=== PATIENT | female | born 1990 | race Caucasian/White ===

== ENCOUNTER 2020-01-21 18:08 | Emergency (ER) | payer SELFPAY ==
[2020-01-21 18:22] VITALS: BP 157/93; PULSE 112; RESP 20; TEMP 36.6; O2SAT 97; BMI 38.4
--- NOTE | 2020-01-21 19:55 | CTR_ITS ---
PROCEDURE INFORMATION: Exam: CT Abdomen And Pelvis With Contrast Exam date and time: 01/21/2020 8:08 PM Age: 29 years old Clinical indication: Abdominal pain; Localized; Right lower quadrant (rlq); Additional info: Rlq pain TECHNIQUE: Imaging protocol: Computed tomography of the abdomen and pelvis with intravenous contrast. Radiation optimization: All CT scans at this facility use at least one of these dose optimization techniques: automated exposure control; mA and/or kV adjustment per patient size (includes targeted exams where dose is matched to clinical indication); or iterative reconstruction. Contrast material: OMNIPAQUE 300; Contrast volume: 95 ml; Contrast route: INTRAVENOUS (IV); COMPARISON: CT Abdomen/Pelvis Renal [id number] 06/18/2013 9:05 AM RADIATION DOSE METRICS: Total DLP (mGy-cm): 1690.61 FINDINGS: Liver: Normal. No mass. Gallbladder and bile ducts: Normal. No calcified stones. No ductal dilation. Pancreas: Normal. No ductal dilation. Spleen: Normal. No splenomegaly. Adrenals: Normal. No mass. Kidneys and ureters: 1 mm bilateral nonobstructing renal calculi. No hydronephrosis. Stomach and bowel: Unremarkable. No obstruction. No mucosal thickening. Appendix: The appendix is visible and is normal. Intraperitoneal space: Unremarkable. No free air. No significant fluid collection. Vasculature: Unremarkable. No abdominal aortic aneurysm. Lymph nodes: Unremarkable. No enlarged lymph nodes. Urinary bladder: Unremarkable as visualized. Reproductive: 4.9 cm cyst in the right ovary, Hounsfield units measuring 20. The uterus and left ovary unremarkable. Bones/joints: Unremarkable. No acute fracture. Soft tissues: Small fat containing umbilical hernia. CT/CT abdomen pelvis w con* [id number] IMPRESSION: 1. 4.9 cm simple appear cyst in the right ovary. These require no follow-up in asymptomatic patients. If this could refer to patient's symptoms, this can be further evaluated with ultrasound. 2. Tiny nonobstructing renal calculi. Radiation Dose CTDIVOL = (mGy): DLP = 1690.61 (mGy-cm)
--- NOTE | 2020-01-21 19:57 | W.ED.FEMALGU ---
HPI - Female Genitourinary General: Chief complaint: Urogenital-Female Stated complaint: severe pelvic pain Time Seen by Provider: 01/21/20 19:47 Source: patient Mode of arrival: ambulatory Limitations: no limitations History of Present Illness: HPI Narrative: 29-year-old female states states she has been having right lower quadrant abdominal pain over the last 2 days it is worsened. States pain is sharp in nature and rates an 8 out of 10. States that radiates down into her pelvis. She denies any vaginal discharge or bleeding. Patient denies any worsening or improving factors. She denies any vomiting or diarrhea. She has no history of abdominal surgeries in the past. Associated symptoms: Reports abdominal pain; Deny headache(s) Review of Systems Const: Denies: fever(s), chills, body aches or change in appetite Eyes: Denies: blurry vision or eye discomfort ENMT: Denies: throat pain or dental pain Card: Denies: chest pain Resp: Denies: dyspnea GI: Reports: abdominal pain : Denies: dysuria Musc: Denies: neck pain or back pain Skin/Breast: Denies: rash Neuro: Denies: headache(s) Psych: Denies: depression [place]/Lymph: Denies: easy bruising All/Imm: Denies: urticaria Physical Exam Const: COMMON NORMALS: no acute distress, patient oriented x3 and healthy appearing HENMT: COMMON NORMALS: normocephalic and atraumatic HEAD & SCALP: normocephalic and atraumatic Eye: COMMON NORMALS: Equal, round and reactive pupils present and EOMs intact bilaterally PUPIL: Yes Equal, round and reactive pupils present Neck/C-Spine: COMMON NORMALS: full ROM and supple Chest: COMMONS NORMALS: normal inspection of the chest and normal palpation of entire chest wall Resp: COMMON NORMALS: normal respiratory effort, No retractions, No use of accessory muscles and clear to auscultation bilaterally AUSCULTATION: clear to auscultation bilaterally Cardio: COMMON NORMALS: regular rate, regular rhythm and No murmurs present (Cardio) RATE: regular rate RHYTHM: regular rhythm GI: COMMON NORMALS: Normal to inspection, nondistended, normoactive bowel sounds present, Soft to palpation and no masses PALPATION: Yes Soft to palpation and Yes Tenderness to palpation present (GI) Details: RLQ Extremity: COMMON NORMALS: normal to inspection and full ROM Neuro: COMMON NORMALS: patient oriented x3, moves all extremities and no focal motor deficits Psych: COMMON NORMALS: mental status grossly normal, Normal thought process present and cooperative THOUGHT PROCESS: Normal thought process present Skin: COMMON NORMALS: no rashes or lesions noted and no wounds GENERAL SKIN EXAM: no rashes or lesions noted Course Vital Signs: Vital signs: Vital Signs Temperature 97.9 F 01/21/20 18:22 Pulse Rate 93 01/21/20 21:41 Respiratory Rate 18 01/21/20 21:41 Blood Pressure 117/81 01/21/20 21:41 Pulse Oximetry 97 01/21/20 21:41 MDM - Female MDM Narrative: Medical decision making narrative: Catie presents here with abdominal pain likely from ovarian cyst. Her pain is minimal and she has very minimal tenderness. CT showed no signs of appendicitis. Patient is stable for discharge and is to follow-up with gynecology. Patient is return if worsening. She understands and agrees to plan. Lab Data: Labs: Lab Results 01/21/20 01/21/20 01/21/20 Range/Units 20:04 20:25 20:25 WBC 14.2 H (4.0-10.0) 10^3/ uL RBC 4.45 (4.1-5.3) 10^6/u L Hgb 12.6 (11.5-15.3) g/dL Hct 38.5 (37.0-47.0) % MCV 86.5 (81-99) fL MCH 28.3 (28.0-34.0) pg MCHC 32.7 (30.0-36.0) g/dL RDW 13.8 (12.1-15.1) % Plt Count 331 (130-400) 10^3/c mm MPV 10.3 (7.4-10.4) fL Neut % (Auto) 56.6 % Lymph % (Auto) 34.1 % [place] % (Auto) 7.1 % Eos % (Auto) 1.3 % Baso % (Auto) 0.6 % Neut # (Auto) 8.02 H (1.8-7.7) 10^3/u L Lymph # (Auto) 4.8 (0.8-4.8) 10^3/u L [place] # (Auto) 1.0 H (0.2-0.9) 10^3/u L Eos # (Auto) 0.2 (0.0-0.8) 10^3/u L Baso # (Auto) 0.1 (0.0-0.1) 10^3/u L Nucleated RBC % (a uto) 0 % Nucleated RBCs # 0.0 /100WBC Sodium 134 L (136-145) mmol/L Potassium 3.9 (3.5-5.1) mmol/L Chloride 101 (98-107) mmol/L Carbon Dioxide 22 (22-29) mmol/L Anion Gap 14.9 (5-19) BUN 12 (6-20) mg/dL Creatinine 0.7 (0.5-0.9) mg/dL GFR Calculation 97.6 (90-130) mL/min Glucose 97 (65-115) mg/dL Calculated Osmolal ity 278 L (285-295) mOsm/k g Calcium 9.3 (8.5-10.5) mg/dL Total Bilirubin 0.2 (0.15-1.2) mg/dL AST 15 (0-32) U/L ALT 18 (0-33) U/L Alkaline Phosphata se 63 (35-105) IU/L Total Protein 7.2 (6.6-8.7) g/dL Albumin 3.6 (3.5-5.2) g/dL Globulin 3.6 (1.3-4.6) g/dL Lipase 43 (13-60) U/L HCG, Qual Negative (Negative) Imaging Data: CT Abd/Pel: Radiologist's impression: [address] [address] [address] Scan Report Signed Patient: Catie Andrade Unit #: [id number] : 1990 Age/Sex: 29 / F ADM Date: 01/21/20 Loc: ER Room/Bed: Attending Dr: Ordering Provider/Ordering MD: Annita Aguilar MD Date of Service: 01/21/20 Procedure(s): CT abdomen pelvis w con* [id number] Accession Number(s): [id number] Report Number: [id number] PROCEDURE INFORMATION: Exam: CT Abdomen And Pelvis With Contrast Exam date and time: 01/21/2020 8:08 PM Age: 29 years old Clinical indication: Abdominal pain; Localized; Right lower quadrant (rlq); Additional info: Rlq pain TECHNIQUE: Imaging protocol: Computed tomography of the abdomen and pelvis with intravenous contrast. Radiation optimization: All CT scans at this facility use at least one of these dose optimization techniques: automated exposure control; mA and/or kV adjustment per patient size (includes targeted exams where dose is matched to clinical indication); or iterative reconstruction. Contrast material: OMNIPAQUE 300; Contrast volume: 95 ml; Contrast route: INTRAVENOUS (IV); COMPARISON: CT Abdomen/Pelvis Renal [id number] 06/18/2013 9:05 AM RADIATION DOSE METRICS: Total DLP (mGy-cm): 1690.61 FINDINGS: Liver: Normal. No mass. Gallbladder and bile ducts: Normal. No calcified stones. No ductal dilation. Pancreas: Normal. No ductal dilation. Spleen: Normal. No splenomegaly. Adrenals: Normal. No mass. Kidneys and ureters: 1 mm bilateral nonobstructing renal calculi. No hydronephrosis. Stomach and bowel: Unremarkable. No obstruction. No mucosal thickening. Appendix: The appendix is visible and is normal. Intraperitoneal space: Unremarkable. No free air. No significant fluid collection. Vasculature: Unremarkable. No abdominal aortic aneurysm. Lymph nodes: Unremarkable. No enlarged lymph nodes. Urinary bladder: Unremarkable as visualized. Reproductive: 4.9 cm cyst in the right ovary, Hounsfield units measuring 20. The uterus and left ovary unremarkable. Bones/joints: Unremarkable. No acute fracture. Soft tissues: Small fat containing umbilical hernia. CT/CT abdomen pelvis w con* [id number] IMPRESSION: 1. 4.9 cm simple appear cyst in the right ovary. These require no follow-up in asymptomatic patients. If this could refer to patient's symptoms, this can be further evaluated with ultrasound. 2. Tiny nonobstructing renal calculi. Discharge Plan Discharge Patient Disposition: Home Clinical Impression: Ovarian cyst Qualifiers: Laterality: right Qualified Code(s): N83.201 - Unspecified ovarian cyst, right side Condition: Stable Prescriptions: [place] 5-325 mg tablet 1 tab PO Q6H PRN (Reason: pain) Qty: 14 RF: 0 ondansetron 4 mg tablet,disintegrating 4 mg PO Q6H PRN (Reason: nausea and vomiting) Qty: 14 RF: 0 Discharge Orders: Discharge Order (Routine); Ordered 01/21/20 Ordered By: Annita Aguilar Referrals: Kevin Murdock MD [Primary Care Provider] - Pedro Luis Otero MD [Physician] - 1-3 days Discharge Diet: Advance as tolerated Discharge Activity: Resume usual activity Patient Instructions: Ovarian Cyst (ED) Coding Level of Care Code ED Frame Table Operator for Chg Fwd Exam Comprehensive
[2020-01-21 20:09] LABS: HCG Qualitative Urine. Negative (Negative)
[2020-01-21] MEDS: sodium chloride 0.9% 1,000 ML 999 ML IV (20:28)
[2020-01-21 20:29] LABS: Basophils # 0.1 10^3/uL (0.0-0.1); Basophils % 0.6 %; Eosinophils # 0.2 10^3/uL (0.0-0.8); Eosinophils % 1.3 %; Hematocrit 38.5 % (37.0-47.0); Hemoglobin 12.6 g/dL (11.5-15.3); Lymphocytes # 4.8 10^3/uL (0.8-4.8); Lymphocytes % 34.1 %; Mean Corpuscular HGB Conc 32.7 g/dL (30.0-36.0); Mean Corpuscular Hemoglobin 28.3 pg (28.0-34.0); Mean Corpuscular Volume 86.5 fL (81-99); Mean Platelet Volume 10.3 fL (7.4-10.4); Monocytes % 7.1 %; Neutrophils # 8.02 10^3/uL (1.8-7.7); Neutrophils % 56.6 %; Nucleated Red Blood Cells % 0 %; Platelet Count 331 10^3/cmm (130-400); Red Blood Count 4.45 10^6/uL (4.1-5.3); Red Cell Distribution Width 13.8 % (12.1-15.1); White Blood Count 14.2 10^3/uL (4.0-10.0)
[2020-01-21 20:32] VITALS: BP 150/88; PULSE 99; RESP 18; O2SAT 95
[2020-01-21] MEDS: iohexol 300 mg/mL 100 mL Btl IV (20:49)
[2020-01-21 20:50] LABS: Alanine Aminotransferase 18 U/L (0-33); Albumin Level 3.6 g/dL (3.5-5.2); Alkaline Phosphatase 63 IU/L (35-105); Anion Gap 14.9 (5-19); Aspartate Amino Transferase 15 U/L (0-32); Blood Urea Nitrogen 12 mg/dL (6-20); Calcium 9.3 mg/dL (8.5-10.5); Carbon Dioxide 22 mmol/L (22-29); Chloride 101 mmol/L (98-107); Globulin 3.6 g/dL (1.3-4.6); Glomerular Filtration Rate 97.6 mL/min (90-130); Glucose 97 mg/dL (65-115); Lipase 43 U/L (13-60); Osmolality Calculated 278 mOsm/kg (285-295); Potassium 3.9 mmol/L (3.5-5.1); Sodium 134 mmol/L (136-145); Total Bilirubin 0.2 mg/dL (0.15-1.2); Total Protein 7.2 g/dL (6.6-8.7)
--- NOTE | 2020-01-21 21:22 | PC.NURSE ---
Patient refused Morphine and Zofran at 1999 not charting as not given at this time in case nausea and pain return.
[2020-01-21 21:41] VITALS: BP 117/81; PULSE 93; RESP 18; O2SAT 97
[2020-01-21 22:29] LABS: Add Urine Microscopic? NO
[2020-01-21 22:35] VITALS: BP 125/86; PULSE 90; RESP 18; O2SAT 96
[2020-01-21 23:11] LABS: Bilirubin Urine Neg (Negative); Blood Urine Neg (Negative); Glucose Urine UA Norm (Normal); Ketones Urine Negative (Negative); Leukocyte Esterase Urine Negative (Negative); Nitrate Urine Negative (Negative); Protein Urine Neg (Negative); Specific Gravity, Urine 1.025 (1.005-1.030); Urine Appearance Clear (CLEAR); Urine Color Yellow (Yellow); Urobilinogen Urine Norm (Negative)
--- NOTE | 2020-01-22 09:16 | DCPLANNER ---
advertising manager had message to schedule a follow up appointment for patient with [facility]. advertising manager called the [facility], spoke with Fabián, gave clinic patients information. advertising manager was told that patients information would be printed and reviewed. Clinic will call patient with appointment information.
--- NOTE | 2020-01-26 15:49 | DCPLANNER ---
Fabián from [facility] called adult protective caseworker and informed adult protective caseworker that when clinic called patient to schedule a follow up appointment, that patient is following up with her OB.
== END 2020-01-21 22:35 | disposition home or self-care (01) ==
PROVIDERS: Emergency Provider Emergency Medicine; PCP Family Medicine
DX: N83.201 Unspecified ovarian cyst, right side (principal)
CPT/HCPCS: 12345; 74177; 80053; 81003; 81025; 83690; 85025; 96360; 99283; J7030; Q9967

== ENCOUNTER 2020-08-21 15:28 | Emergency (ER) | payer OTHER, SELFPAY ==
[2020-08-21 15:29] VITALS: BP 159/109; PULSE 96; RESP 26; TEMP 36.6; O2SAT 100; BMI 36.6
--- NOTE | 2020-08-21 15:34 | CTR_ITS ---
PROCEDURE INFORMATION: Exam: CT Abdomen And Pelvis Without Contrast Exam date and time: 08/21/2020 4:00 PM Age: 29 years old Clinical indication: Abdominal pain; Other: Back and valeria flank pain TECHNIQUE: Imaging protocol: Computed tomography of the abdomen and pelvis without contrast. Radiation optimization: All CT scans at this facility use at least one of these dose optimization techniques: automated exposure control; mA and/or kV adjustment per patient size (includes targeted exams where dose is matched to clinical indication); or iterative reconstruction. COMPARISON: CT abdomen pelvis w con* [id number] 01/21/2020 8:40 PM RADIATION DOSE METRICS: Total DLP (mGy-cm): 1879 FINDINGS: Liver: Normal. No mass. Gallbladder and bile ducts: Normal. No calcified stones. No ductal dilation. Pancreas: Normal. No ductal dilation. Spleen: Normal. No splenomegaly. Adrenal glands: Normal. No mass. Kidneys and ureters: 2 mm calculus in the terminal left ureter with mild columning of the left ureter and trace hydronephrosis. 2 mm nonobstructing calculus in the right and left kidneys. Stomach and bowel: Unremarkable. No obstruction. No mucosal thickening. Appendix: The appendix is visualized and is normal. Intraperitoneal space: Unremarkable. No free air. No significant fluid collection. Vasculature: Unremarkable. No abdominal aortic aneurysm. Lymph nodes: Unremarkable. No enlarged lymph nodes. Urinary bladder: Unremarkable as visualized. Reproductive: Unremarkable as visualized. Bones/joints: Unremarkable. No acute fracture. Soft tissues: Small fat containing umbilical hernia. CT/CT kidney stone [id number] IMPRESSION: 1. 2 mm calculus in the terminal left ureter with mild left hydronephrosis. 2. Small bilateral renal calculi. Radiation Dose CTDIVOL = (mGy): DLP = 1879 (mGy-cm)
--- NOTE | 2020-08-21 15:35 | ED_ITS ---
HPI - Back Pain/Injury General: Chief Complaint: Back Pain/Injury Stated Complaint: Poss kidney stone/back pain Time Seen by Provider: 08/21/20 15:29 History of Present Illness: HPI Narrative: This patient is a 29-year-old female presents to the emergency department with left flank pain. Patient states she does have a history of kidney stones. Patient also has a history of anxiety panic disorder. Patient appears to be having anxiety and panic attack with hyperventilation. We will do medical evaluation treat as needed. MD elicited complaint: back pain Pain scale (0-10): 10 Quality: sharp Radiation: abdomen and groin Relieving factors: none Associated symptoms: Reports abdominal pain; Deny chills, dysuria, fatigue, fever(s), nausea, urinary urgency or vomiting Review of Systems General: Reports: 10 or more systems reviewed and unremarkable except in HPI and below Const: Denies: fever(s), chills, body aches or fatigue Eyes: Denies: change in vision or blurry vision ENMT: Denies: throat pain, hoarseness or mouth pain Card: Denies: chest pain, palpitations, irregular heart rhythm, edema, swelling of feet/ankles or lightheadedness Resp: Denies: dyspnea, productive cough, non-productive cough, wheezing or pain on inspiration GI: Reports: abdominal pain; Denies: nausea or vomiting : Reports: flank pain; Denies: difficulty voiding, dysuria, urinary frequency, urinary urgency or urinary hesitancy Musc: Denies: neck pain, back pain, extremity pain, extremity swelling, joint pain, joint swelling, joint redness, joint warmth or limited range of motion Skin/Breast: Denies: rash, pruritus, erythema or skin tenderness Neuro: Denies: headache(s), numbness in extremities or weakness in extremities Psych: Denies: anxiety or depression [facility] Female Reproductive History: Date of last menstrual period: 08/19/20 Physical Exam Const: COMMON NORMALS: no acute distress, average body habitus, patient oriented x3, no limitations, healthy appearing, alert and well nourished HENMT: COMMON NORMALS: normocephalic, atraumatic, external ears normal, EAC's normal, TM's normal bilaterally, Normal external nose present and Normal nasal mucous membranes and turbinates present HEAD & SCALP: normocephalic and atraumatic NOSE: Normal external nose present and Normal nasal mucous membranes and turbinates present EXTERNAL EAR: Yes external ears normal EXTERNAL AUDITORY CANAL: EAC's normal TYMPANIC MEMBRANE: TM's normal bilaterally Neck/C-Spine: COMMON NORMALS: full ROM, no lymphadenopathy, supple, no meningeal signs, no JVD, Thyroid normal and No carotid bruits THYROID: Thyroid normal Chest: COMMONS NORMALS: normal inspection of the chest, normal palpation of entire chest wall, normal inspection of the breasts and normal palpation of the breasts Breast/axilla inspection: Yes normal inspection of the breasts BREAST/AXILLA PALPATION: Yes normal palpation of the breasts Resp: COMMON NORMALS: normal respiratory effort, No retractions, No use of accessory muscles, clear to auscultation bilaterally and percussion normal AUSCULTATION: clear to auscultation bilaterally PERCUSSION: percussion normal Cardio: COMMON NORMALS: no JVD, regular rate, regular rhythm, S1 normal heart sound present, S2 normal heart sound present, No gallops present (Cardio), No clicks present (Cardio), No murmurs present (Cardio), No rub (Cardio) and Peripheral pulses 2+ throughout RATE: regular rate RHYTHM: regular rhythm HEART SOUNDS: S1 normal heart sound present and S2 normal heart sound present PERIPHERAL PULSES: Peripheral pulses 2+ throughout GI: COMMON NORMALS: Normal to inspection, nondistended, normoactive bowel sounds present, Soft to palpation, non-tender, No hepatosplenomegaly present, no masses and no bruits PALPATION: Yes Soft to palpation and Yes No hepatosplenomegaly present : COMMON NORMALS: Yes normal external appearance, Yes normal appearance of the vagina, Yes normal appearance of the cervix, Yes normal bimanual exam, Yes No adnexal tenderness and Yes no masses BLADDER/KIDNEY EXAM: Yes CVA tenderness on the left BIMANUAL EXAM - VAGINA & UTERUS: Yes normal bimanual exam Back/Pelvis: COMMON NORMALS: thoracic and lumbar spine normal to inspection, no thoracic nor lumbar tenderness, thoraco-lumbar ROM normal and straight leg raise negative bilaterally GENERAL BACK: Yes CVA tenderness Extremity: COMMON NORMALS: normal to inspection, full ROM, capillary refill normal, no joint enlargement, no clubbing, cyanosis or edema, no calf tenderness and no pedal edema Neuro: COMMON NORMALS: patient oriented x3 SENSORIUM/ORIENTATION: Yes alert MENINGEAL SIGNS: Yes no meningeal signs Course Vital Signs: Vital signs: Vital Signs Temperature 97.9 F 08/21/20 15:29 Pulse Rate 94 08/21/20 16:33 Respiratory Rate 18 08/21/20 16:33 Blood Pressure 121/76 08/21/20 16:33 Pulse Oximetry 100 08/21/20 16:33 MDM - Back Pain/Injury MDM Narrative: Medical decision making narrative: This patient presents to the emergency department complaint of left leg pain and anxiety attack. Patient does have a 2 mm calculus present on CT scan. Patient be placed on Flomax and diclofenac discharged home. Medical Records: Attestation: I reviewed the patient's medical records. Lab Data: Attestation: I reviewed the patient's lab results. Labs: Lab Results 08/21/20 08/21/20 08/21/20 Range/Units 15:38 15:38 15:45 WBC 13.4 H (4.0-10.0) 10^3/ uL RBC 4.43 (4.1-5.3) 10^6/u L Hgb 13.2 (11.5-15.3) g/dL Hct 38.5 (37.0-47.0) % MCV 86.9 (81-99) fL MCH 29.8 (28.0-34.0) pg MCHC 34.3 (30.0-36.0) g/dL RDW 13.7 (12.1-15.1) % Plt Count 358 (130-400) 10^3/c mm MPV 10.5 H (7.4-10.4) fL Neut % (Auto) 50.7 % Lymph % (Auto) 40.1 % [place] % (Auto) 7.2 % Eos % (Auto) 1.0 % Baso % (Auto) 0.7 % Neut # (Auto) 6.79 (1.8-7.7) 10^3/u L Lymph # (Auto) 5.4 H (0.8-4.8) 10^3/u L [place] # (Auto) 1.0 H (0.2-0.9) 10^3/u L Eos # (Auto) 0.1 (0.0-0.8) 10^3/u L Baso # (Auto) 0.1 (0.0-0.1) 10^3/u L Nucleated RBC % (a uto) 0 % Nucleated RBCs # 0.0 /100WBC Specimen Type Arterial Sample Site Radial, left ABG pH 7.45 (7.35-7.45) ABG pCO2 31.2 L (35-45) mmHg ABG pO2 56.5 L (80.0-100.0) mmH g ABG HCO3 21.5 L (22-26) mmol/L ABG O2 Saturation 90.8 ABG Base Excess -1.7 (-2.0-2.0) mmol/ L Dung Test Pos A-a O2 Gradient 7.2 (5-10) mmHg Hematocrit 38.8 (37-47) % Hgb O2 Saturation 89.2 L (95-100) % Carboxyhemoglobin 0.8 (0.4-20.1) %THgb Methemoglobin 0.9 (0.4-1.5) % Total Hemoglobin 12.7 (12-16) g/dL Ionized Calcium 1.2 (1.1-1.4) mmol/L O2 Delivery Device Room air FiO2 21.0 % Early Childhood Aide Classroom ID Cak Sodium 138 141.0 (136-145) mmol/L Potassium 4.2 3.3 L (3.5-5.1) mmol/L Chloride 102 (98-107) mmol/L Carbon Dioxide 17 L (22-29) mmol/L Anion Gap 23.2 H (5-19) BUN 7 (6-20) mg/dL Creatinine 0.7 (0.5-0.9) mg/dL GFR Calculation 97.6 (90-130) mL/min Glucose 126 H 139.0 H (65-115) mg/dL Calculated Osmolal ity 286 (285-295) mOsm/k g Calcium 9.3 (8.5-10.5) mg/dL Total Bilirubin 0.4 (0.15-1.2) mg/dL AST 22 (0-32) U/L ALT 26 (0-33) U/L Alkaline Phosphata se 62 (35-105) IU/L Total Protein 7.2 (6.6-8.7) g/dL Albumin 4.5 (3.5-5.2) g/dL Globulin 2.7 (1.3-4.6) g/dL Lipase 28 (13-60) U/L HCG, Qual (Negative) Urine Color (Yellow) Urine Appearance (CLEAR) Urine pH (5-7) Ur Specific Gravit y (1.005-1.030) Urine Protein (Negative) Urine Glucose (UA) (Normal) Urine Ketones (Negative) Urine Blood (Negative) Urine Nitrate (Negative) Urine Bilirubin (Negative) Urine Urobilinogen (Negative) mg/dL Ur Leukocyte Ana Laura ase (Negative) Urine RBC (0-2) /hpf Urine WBC (0-5) /hpf Ur Squamous Epith Cells (0-5) /hpf Amorphous Sediment Urine Bacteria (NONE) /hpf Urine Mucus /hpf 08/21/20 08/21/20 Range/Units 16:08 16:08 WBC (4.0-10.0) 10^3/ uL RBC (4.1-5.3) 10^6/u L Hgb (11.5-15.3) g/dL Hct (37.0-47.0) % MCV (81-99) fL MCH (28.0-34.0) pg MCHC (30.0-36.0) g/dL RDW (12.1-15.1) % Plt Count (130-400) 10^3/c mm MPV (7.4-10.4) fL Neut % (Auto) % Lymph % (Auto) % [place] % (Auto) % Eos % (Auto) % Baso % (Auto) % Neut # (Auto) (1.8-7.7) 10^3/u L Lymph # (Auto) (0.8-4.8) 10^3/u L [place] # (Auto) (0.2-0.9) 10^3/u L Eos # (Auto) (0.0-0.8) 10^3/u L Baso # (Auto) (0.0-0.1) 10^3/u L Nucleated RBC % (a uto) % Nucleated RBCs # /100WBC Specimen Type Sample Site ABG pH (7.35-7.45) ABG pCO2 (35-45) mmHg ABG pO2 (80.0-100.0) mmH g ABG HCO3 (22-26) mmol/L ABG O2 Saturation ABG Base Excess (-2.0-2.0) mmol/ L Dung Test A-a O2 Gradient (5-10) mmHg Hematocrit (37-47) % Hgb O2 Saturation (95-100) % Carboxyhemoglobin (0.4-20.1) %THgb Methemoglobin (0.4-1.5) % Total Hemoglobin (12-16) g/dL Ionized Calcium (1.1-1.4) mmol/L O2 Delivery Device FiO2 % Early Childhood Aide Classroom ID Sodium (136-145) mmol/L Potassium (3.5-5.1) mmol/L Chloride (98-107) mmol/L Carbon Dioxide (22-29) mmol/L Anion Gap (5-19) BUN (6-20) mg/dL Creatinine (0.5-0.9) mg/dL GFR Calculation (90-130) mL/min Glucose (65-115) mg/dL Calculated Osmolal ity (285-295) mOsm/k g Calcium (8.5-10.5) mg/dL Total Bilirubin (0.15-1.2) mg/dL AST (0-32) U/L ALT (0-33) U/L Alkaline Phosphata se (35-105) IU/L Total Protein (6.6-8.7) g/dL Albumin (3.5-5.2) g/dL Globulin (1.3-4.6) g/dL Lipase (13-60) U/L HCG, Qual Negative (Negative) Urine Color Yellow (Yellow) Urine Appearance Cloudy (CLEAR) Urine pH 5 (5-7) Ur Specific Gravit y 1.025 (1.005-1.030) Urine Protein 2+ H (Negative) Urine Glucose (UA) Norm (Normal) Urine Ketones 2+ H (Negative) Urine Blood 3+ H (Negative) Urine Nitrate Negative (Negative) Urine Bilirubin 1+ H (Negative) Urine Urobilinogen 1 H (Negative) mg/dL Ur Leukocyte Ana Laura ase Trace H (Negative) Urine RBC Too numerous to c nt H (0-2) /hpf Urine WBC 0-4 H (0-5) /hpf Ur Squamous Epith Cells Rare (0-5) /hpf Amorphous Sediment Not Reportable Urine Bacteria 2+ H (NONE) /hpf Urine Mucus 2+ /hpf Imaging Data^: CT Abd/Pel: Attestation: I personally reviewed and interpreted this imaging study as follows: My impression: IMPRESSION: 1. 2 mm calculus in the terminal left ureter with mild left hydronephrosis. 2. Small bilateral renal calculi. Discharge Plan Discharge Patient Disposition: Home Clinical Impression: Renal colic, Kidney stone, Anxiety attack Condition: Stable Prescriptions: New Flomax 0.4 mg capsule 0.4 mg PO DAILY Qty: 20 RF: 0 diclofenac sodium 75 mg tablet,delayed release (DR/EC) 75 mg PO BID PRN (Reason: pain) Qty: 20 RF: 0 Discharge Orders: Discharge ED (Routine); Ordered 08/21/20 Ordered By: Pedro Luis Yañez Referrals: Kevin Murdock MD [Primary Care Provider] - Discharge Diet: Advance as tolerated Discharge Activity: Increase activity as tolerated Patient Instructions: Abdominal Pain (ED), Opioid Safety Activity Restrictions/Additional Instructions: Encourage p.o. fluids take medications as prescribed encourage relaxation exercises follow-up with PCP in 2 to 3 days Coding Level of Care Code ED E Commerce Specialist for Chg Fwd Exam Comprehensive
[2020-08-21] MEDS: ondansetron 2 mg/ML SDV 2 mL 4 MG IVP (15:45)
[2020-08-21] MEDS: ketorolac 30 mg/mL INJ 15 MG IVP (15:45)
[2020-08-21] MEDS: sodium chloride 0.9% 1,000 ML 999 ML IV (15:49)
[2020-08-21 15:52] LABS: Basophils # 0.1 10^3/uL (0.0-0.1); Basophils % 0.7 %; Eosinophils # 0.1 10^3/uL (0.0-0.8); Hematocrit 38.5 % (37.0-47.0); Hemoglobin 13.2 g/dL (11.5-15.3); Lymphocytes # 5.4 10^3/uL (0.8-4.8); Lymphocytes % 40.1 %; Mean Corpuscular HGB Conc 34.3 g/dL (30.0-36.0); Mean Corpuscular Hemoglobin 29.8 pg (28.0-34.0); Mean Corpuscular Volume 86.9 fL (81-99); Mean Platelet Volume 10.5 fL (7.4-10.4); Monocytes % 7.2 %; Neutrophils # 6.79 10^3/uL (1.8-7.7); Neutrophils % 50.7 %; Nucleated Red Blood Cells % 0 %; Platelet Count 358 10^3/cmm (130-400); Red Blood Count 4.43 10^6/uL (4.1-5.3); Red Cell Distribution Width 13.7 % (12.1-15.1); White Blood Count 13.4 10^3/uL (4.0-10.0)
[2020-08-21 15:56] LABS: ABG PCO2 31.2 mmHg (35-45); ABG PH Result 7.45 (7.35-7.45); Alveolar-Arterial Oxygen Gradi 7.2 mmHg (5-10); Arterial Blood Gas Hematocrit 38.8 % (37-47); Base Excess ABG -1.7 mmol/L (-2.0-2.0); Blood Gas Allen Test Pos; Blood Gas Operator Identificat CAK; Blood Gas Sample Site Radial, left; Blood Gas Sample Type Arterial; Carboxyhemoglobin 0.8 %THgb (0.4-20.1); HCO3 ABG 21.5 mmol/L (22-26); HGB O2 Sat 89.2 % (95-100); Ionized Calcium Level - ABG 1.2 mmol/L (1.1-1.4); Methemoglobin 0.9 % (0.4-1.5); Oxygen Device ROOM AIR; Oxygen Saturation ABG 90.8; PO2 ABG 56.5 mmHg (80.0-100.0); Potassium Level - ABG 3.3 mmol/L (3.5-5.0); Total Hemoglobin 12.7 g/dL (12-16)
[2020-08-21 16:16] LABS: Alanine Aminotransferase 26 U/L (0-33); Albumin Level 4.5 g/dL (3.5-5.2); Alkaline Phosphatase 62 IU/L (35-105); Aspartate Amino Transferase 22 U/L (0-32); Blood Urea Nitrogen 7 mg/dL (6-20); Calcium 9.3 mg/dL (8.5-10.5); Carbon Dioxide 17 mmol/L (22-29); Chloride 102 mmol/L (98-107); Globulin 2.7 g/dL (1.3-4.6); Glomerular Filtration Rate 97.6 mL/min (90-130); Glucose 126 mg/dL (65-115); Lipase 28 U/L (13-60); Osmolality Calculated 286 mOsm/kg (285-295); Sodium 138 mmol/L (136-145); Total Bilirubin 0.4 mg/dL (0.15-1.2); Total Protein 7.2 g/dL (6.6-8.7)
[2020-08-21 16:17] LABS: Slide Review Slide Review Perform
[2020-08-21 16:18] LABS: Anion Gap 23.2 (5-19); Potassium 4.2 mmol/L (3.5-5.1)
[2020-08-21 16:25] LABS: HCG Qualitative Urine. Negative (Negative)
[2020-08-21 16:33] VITALS: BP 121/76; PULSE 94; RESP 18; O2SAT 100
[2020-08-21 16:33] LABS: Bilirubin Urine 1+ (Negative); Blood Urine 3+ (Negative); Glucose Urine UA Norm (Normal); Ketones Urine 2+ (Negative); Nitrate Urine Negative (Negative); Protein Urine 2+ (Negative); Specific Gravity, Urine 1.025 (1.005-1.030); Urine Appearance Cloudy (CLEAR); Urine Color Yellow (Yellow); pH Urine 5 (5-7)
[2020-08-21 16:34] LABS: Add Urine Microscopic? YES; Leukocyte Esterase Urine Trace (Negative); Urobilinogen Urine 1 mg/dL (Negative)
[2020-08-21 16:35] LABS: RBC Urine TOO NUMEROUS TO CNT /hpf (0-2)
[2020-08-21 16:36] LABS: Bacteria Urine 2+ /hpf; Mucus Urine 2+ /hpf; Squamous Epithelial Cell Urine RARE /hpf (0-5); WBC Urine 0-4 /hpf (0-5)
[2020-08-21 16:37] LABS: Add Urine Culture? Yes
[2020-08-21 17:33] VITALS: BP 129/81; PULSE 85; RESP 18; O2SAT 100
== END 2020-08-21 17:57 | disposition home or self-care (01) ==
PROVIDERS: Emergency Provider Emergency Medicine; PCP Family Medicine
DX: N20.0 Calculus of kidney (principal); F41.9 Anxiety disorder, unspecified
CPT/HCPCS: 36600; 74176; 80051; 80053; 81001; 81025; 82330; 82805; 83690; 85025; 87086; 96361; 96374; 96375; 99283; J1885; J2405; J7030

== ENCOUNTER 2022-10-09 03:09 | Emergency (ER) | payer OTHER, SELFPAY ==
[2022-10-09 03:19] VITALS: BMI 36.6
[2022-10-09 03:22] VITALS: BP 123/84; PULSE 108; RESP 16; TEMP 36.9; O2SAT 98
--- NOTE | 2022-10-09 04:15 | CTR_ITS ---
PROCEDURE INFORMATION: Exam: CT Head Without Contrast Exam date and time: 10/09/2022 4:21 AM Age: 32 years old Clinical indication: Pain; Headache; Patient HX: GREWAL with dizziness and nausea. ; Additional info: Headache, confusion TECHNIQUE: Imaging protocol: Computed tomography of the head without contrast. Radiation optimization: All CT scans at this facility use at least one of these dose optimization techniques: automated exposure control; mA and/or kV adjustment per patient size (includes targeted exams where dose is matched to clinical indication); or iterative reconstruction. REPORTING DATA: Count of CT and Cardiac NM exams in prior 12 months: This patient has received 0 known CTs and 0 known cardiac nuclear medicine studies in the 12 months prior to the current study. COMPARISON: No relevant prior studies available. RADIATION DOSE METRICS: Total DLP (mGy-cm): 1010.88 FINDINGS: Brain: No focal hemorrhage or midline shift is identified. Cerebral ventricles: No ventriculomegaly or evidence of acute hydrocephalus. Paranasal sinuses: The partially assessed sinuses are grossly clear. Mastoid air cells: Visualized mastoid air cells are well aerated. Bones/joints: No displaced skull fracture is noted. Soft tissues: Unremarkable. CT/CT head wo con* [id number] IMPRESSION: No acute intracranial abnormality.
[2022-10-09 04:20] LABS: Basophils # 0.1 10^3/uL (0.0-0.1); Basophils % 0.9 %; Eosinophils % 0.3 %; Hematocrit 40.4 % (37.0-47.0); Hemoglobin 13.7 g/dL (11.5-15.3); Lymphocytes # 2.7 10^3/uL (0.8-4.8); Lymphocytes % 25.1 %; Mean Corpuscular HGB Conc 33.9 g/dL (30.0-36.0); Mean Corpuscular Hemoglobin 28.6 pg (28.0-34.0); Mean Corpuscular Volume 84.3 fl (81-99); Mean Platelet Volume 10.1 fL (7.4-10.4); Monocytes % 8.9 %; Neutrophils # 6.98 10^3/uL (1.8-7.7); Neutrophils % 64.5 %; Nucleated Red Blood Cells % 0 %; Platelet Count 272 10^3/cmm (130-400); Red Blood Count 4.79 10^6/uL (4.1-5.3); Red Cell Distribution Width 13.4 % (12.1-15.1); White Blood Count 10.8 10^3/uL (4.0-10.0)
[2022-10-09 04:35] LABS: HCG, Serum Qual Negative (Negative)
[2022-10-09 04:39] LABS: Albumin Level 3.8 g/dL (3.5-5.2); Alkaline Phosphatase 69 U/L (35-105); Chloride 100 mmol/L (98-107); Potassium 4.3 mmol/L (3.5-5.1)
--- NOTE | 2022-10-09 04:40 | XRR_ITS ---
PROCEDURE INFORMATION: Exam: XR Chest Exam date and time: 10/09/2022 4:43 AM Age: 32 years old Clinical indication: Cough; Additional info: Cough, vomiting TECHNIQUE: Imaging protocol: Radiologic exam of the chest. Views: 1 view. COMPARISON: CT kidney stone [id number] 08/21/2020 4:59 PM FINDINGS: Lungs: Unremarkable. No consolidation. Pleural spaces: Unremarkable. No pleural effusion. No pneumothorax. Heart/Mediastinum: Unremarkable. No cardiomegaly. Bones/joints: Unremarkable. XR/XR chest 1V portable [id number] IMPRESSION: No acute findings.
[2022-10-09] MEDS: sodium chloride 0.9% 1,000 ML 999 ML IV ×2 (04:59→06:05)
[2022-10-09] MEDS: ondansetron 2 mg/ML SDV 2 mL 4 MG IVP (05:02)
[2022-10-09] MEDS: morphine 4 mg/mL SDV 1 mL IVP (05:04)
[2022-10-09 05:09] LABS: Aspartate Amino Transferase 28 U/L (0-32); Blood Urea Nitrogen 6 mg/dL (6-20); Carbon Dioxide 20 mmol/L (22-29); Globulin 3.8 g/dL (1.3-4.6); Glomerular Filtration Rate 82.1 mL/min (90-130); Glucose 150 mg/dL (65-115); Total Bilirubin 0.3 mg/dL (0.15-1.2); Total Protein 7.6 g/dL (6.6-8.7)
[2022-10-09 05:13] LABS: Alanine Aminotransferase 38 U/L (0-33); Anion Gap 17.3 (5-19); Osmolality Calculated 276 mOsm/kg (285-295); Sodium 133 mmol/L (136-145)
[2022-10-09] MEDS: ketorolac 30 mg/mL INJ 15 MG IVP ×2 (05:17→07:47)
[2022-10-09 05:19] VITALS: BP 142/80; PULSE 107; RESP 24; O2SAT 98
[2022-10-09 05:21] LABS: Creatine Phosphokinase 85 U/L (26-192)
[2022-10-09 05:50] LABS: D Dimer 1.67 ug/mIFEU (0-0.59)
--- NOTE | 2022-10-09 06:27 | CTR_ITS ---
PROCEDURE INFORMATION: Exam: CTA Chest With Contrast Exam date and time: 10/09/2022 6:44 AM Age: 32 years old Clinical indication: Abnormal findings; Abnormal diagnostic tests; Elevated d-dimer; Cough and shortness of breath; Patient HX: Cough with SOB and tachycardia. D dimer of 1.67. ; Additional info: SOB, tachycardia, high d dimer TECHNIQUE: Imaging protocol: Computed tomographic angiography of the chest with contrast. Exam focused on the arteries. 3D rendering (Not supervised by radiologist): MIP and/or 3D reconstructed images were created by the technologist. Radiation optimization: All CT scans at this facility use at least one of these dose optimization techniques: automated exposure control; mA and/or kV adjustment per patient size (includes targeted exams where dose is matched to clinical indication); or iterative reconstruction. Contrast material: OMNI 350; Contrast volume: 74 ml; Contrast route: INTRAVENOUS (IV); REPORTING DATA: Count of CT and Cardiac NM exams in prior 12 months: This patient has received 0 known CTs and 0 known cardiac nuclear medicine studies in the 12 months prior to the current study. COMPARISON: CR (CHEST, ) 10/09/2022 4:43 AM RADIATION DOSE METRICS: Total DLP (mGy-cm): 492.58 FINDINGS: Pulmonary arteries: The pulmonary arteries are adequately opacified for evaluation to the subsegmental level. There is no filling defect to suggest embolism. Aorta: The aorta is unremarkable. There is no aneurysm. Lungs: There is consolidation of the posterior and lateral basal segments and partial consolidation of the superior segment of the right lower lobe. The left lung is clear. Pleural spaces: There is no pleural effusion or pneumothorax. Heart: Heart size is normal. There is no pericardial effusion. Lymph nodes: There are mildly asymmetrically enlarged right hilar lymph nodes which are likely reactive. Intraperitoneal space: Visible structures in the upper abdomen are unremarkable. Bones/joints: Bones are unremarkable. Soft tissues: The extrathoracic soft tissues are unremarkable. CT/CT angio chest PE protcl [id number] IMPRESSION: 1. No pulmonary embolism. 2. Segmental consolidation in the right lower lobe consistent with infection or aspiration.
--- NOTE | 2022-10-09 06:27 | CTR_ITS ---
PROCEDURE INFORMATION: Exam: CTA Head With Contrast, Arteriography Exam date and time: 10/09/2022 6:36 AM Age: 32 years old Clinical indication: Pain; Dizziness and giddiness; Headache; Patient HX: Persistent GREWAL with dizziness and nausea without relief; Additional info: Headache, dizziness, ? vertebral artery dissection TECHNIQUE: Imaging protocol: Computed tomographic angiography of the head with contrast. Exam focused on the arteries. 3D rendering (Not supervised by radiologist): MIP and/or 3D reconstructed images were created by the technologist. Radiation optimization: All CT scans at this facility use at least one of these dose optimization techniques: automated exposure control; mA and/or kV adjustment per patient size (includes targeted exams where dose is matched to clinical indication); or iterative reconstruction. Contrast material: OMNI 350; Contrast volume: 100 ml; Contrast route: INTRAVENOUS (IV); REPORTING DATA: Count of CT and Cardiac NM exams in prior 12 months: This patient has received 0 known CTs and 0 known cardiac nuclear medicine studies in the 12 months prior to the current study. COMPARISON: CT head wo con* [id number] 10/09/2022 4:21 AM RADIATION DOSE METRICS: Total DLP (mGy-cm): 574.3 FINDINGS: ANTERIOR CIRCULATION: Right internal carotid artery: Intracranial segment is patent with no significant stenosis. No aneurysm. Right middle cerebral artery: No occlusion or significant stenosis. No aneurysm. Right anterior cerebral artery: No occlusion or significant stenosis. No aneurysm. Left internal carotid artery: Intracranial segment is patent with no significant stenosis. No aneurysm. Left middle cerebral artery: No occlusion or significant stenosis. No aneurysm. Left anterior cerebral artery: No occlusion or significant stenosis. No aneurysm. POSTERIOR CIRCULATION: Right vertebral artery: No occlusion or significant stenosis. No aneurysm. Left vertebral artery: No occlusion or significant stenosis. No aneurysm. Basilar artery: No occlusion or significant stenosis. No aneurysm. Right posterior cerebral artery: No occlusion or significant stenosis. No aneurysm. Left posterior cerebral artery: No occlusion or significant stenosis. No aneurysm. Brain: No definite mass, mass effect, or midline shift. Cerebral ventricles: No ventriculomegaly. Bones/joints: Unremarkable. No acute fracture. Soft tissues: Unremarkable. PROCEDURE INFORMATION: Exam: CTA Neck With Contrast Exam date and time: 10/09/2022 6:36 AM Age: 32 years old Clinical indication: Pain; Dizziness and giddiness; Headache; Patient HX: Persistent GREWAL with dizziness and nausea without relief; Additional info: Headache, dizziness, ? vertebral artery dissection TECHNIQUE: Imaging protocol: Computed tomographic angiography of the neck with contrast. 3D rendering (Not supervised by radiologist): MIP and/or 3D reconstructed images were created by the technologist. Radiation optimization: All CT scans at this facility use at least one of these dose optimization techniques: automated exposure control; mA and/or kV adjustment per patient size (includes targeted exams where dose is matched to clinical indication); or iterative reconstruction. Contrast material: OMNI 350; Contrast volume: 100 ml; Contrast route: INTRAVENOUS (IV); REPORTING DATA: Count of CT and Cardiac NM exams in prior 12 months: This patient has received 0 known CTs and 0 known cardiac nuclear medicine studies in the 12 months prior to the current study. COMPARISON: CT head wo con* [id number] 10/09/2022 4:21 AM RADIATION DOSE METRICS: Total DLP (mGy-cm): 574.3 FINDINGS: Right common carotid artery: No stenosis. No dissection or occlusion. Right internal carotid artery: No stenosis of the extracranial segment. No dissection or occlusion. Right external carotid artery: No occlusion or stenosis of the origin. Left common carotid artery: No stenosis. No dissection or occlusion. Left internal carotid artery: No stenosis of the extracranial segment. No dissection or occlusion. Left external carotid artery: No occlusion or stenosis of the origin. Right vertebral artery: No stenosis. No dissection or occlusion. Left vertebral artery: No stenosis. No dissection or occlusion. Soft tissues: Normal. No significant soft tissue swelling. Bones/joints: No acute fracture. CT/CT angio headneck* [id number] IMPRESSION: No large vessel stenosis or occlusion. IMPRESSION: No stenosis or occlusion. REFERENCES: NASCET CRITERIA. The degree of stenosis in the cervical segment of the internal carotid artery is based on NASCET criteria. Normal is no stenosis. Mild is less than 50% stenosis. Moderate is 50-69% stenosis. Severe is 70% to 99% stenosis. Total occlusion is no detectable patent lumen.
[2022-10-09] MEDS: iohexol 350 mg/mL 500 mL Btl (per mL) IV ×2 (06:47→06:53)
[2022-10-09 07:00] VITALS: BP 116/65; PULSE 88; RESP 18; O2SAT 94
--- NOTE | 2022-10-09 07:01 | ED_ITS ---
HPI - Headache General: Chief Complaint: Headache Stated Complaint: Headache Time Seen by Provider: 10/09/22 04:27 Source: patient and family History of Present Illness: 32-year-old female presenting with multiple complaints. She notes that she was outside [place] a water park a week ago for 2 days straight. She felt tired and dehydrated following this. She began to get a headache at some point. The headache has worsened. She is dizzy. She has paresthesia to her left upper extremity. She feels short of breath. She has been coughing some. No overt chest pain. No other neurologic symptoms. MD elicited complaint: headache Onset (ago): day(s) Onset description: gradually Location: left, frontal, temporal and occipital Quality & Timing: throbbing, pulsatile and progressively worsening Associated symptoms: Reports confusion (Intermittent), nausea, neck stiffness, paresthesias, photophobia and vomiting; Deny chest pain, eye pain, eye redness, fever(s) or short of breath Review of Systems Const: Denies: fever(s) Eyes: Reports: change in vision ENMT: Reports: throat pain, odynophagia and dry mouth Card: Denies: chest pain Resp: Reports: dyspnea and non-productive cough GI: Reports: nausea and vomiting; Denies: abdominal pain Neuro: Reports: headache(s), numbness in extremities, dizziness and confusion (Intermittent) [facility] ED PFSH: Social History (Updated 12/20/20 @ 08:39 by Sun Coon LPN) Smoking and tobacco status: never smoked Second hand smoke exposure: Yes Physical Exam Const: COMMON NORMALS: patient oriented x3 and alert GENERAL APPEARANCE: cooperative, anxious and ill appearing (Mildly); not frail appearing NUTRITIONAL APPEARANCE: overweight ORIENTATION/CONSCIOUSNESS: Yes oriented to person, Yes oriented to place and Yes oriented to time HENMT: COMMON NORMALS: normocephalic, atraumatic and Normal external nose present HEAD & SCALP: normocephalic and atraumatic FACE & SINUS: normal facial exam and face symmetric NOSE: Normal external nose present Eye: COMMON NORMALS: Equal, round and reactive pupils present and EOMs intact bilaterally PUPIL: Yes Equal, round and reactive pupils present DIRECT OPHTHALMOSCOPY: Yes photophobia Neck/C-Spine: GENERAL: Yes trachea midline Chest: CHEST: Yes Symmetrical chest wall rise Resp: COMMON NORMALS: No retractions, No use of accessory muscles and clear to auscultation bilaterally EFFORT & INSPECTION: Yes tachypneic AUSCULTATION: clear to auscultation bilaterally Cardio: COMMON NORMALS: regular rhythm RATE: tachycardic RHYTHM: regular rhythm GI: COMMON NORMALS: Normal to inspection, nondistended, normoactive bowel sounds present Extremity: COMMON NORMALS: no pedal edema Neuro: CORRINE COMA SCALE: document GCS findings [place] coma scale eye o pening: Spontaneous [place] coma scale verbal response: Orientated Corrine coma scale motor response: Obey commands Corrine coma scale total score: 15 COMMON NORMALS: patient oriented x3 SENSORIUM/ORIENTATION: Yes alert, Yes oriented to person, Yes oriented to place and Yes oriented to time CRANIAL NERVES: Yes CN normal except as noted SPEECH: no expressive aphasia and no receptive aphasia SENSORY EXAM: Yes extremities (intact grossly, although subjective decreased to the left upper extremity) MOTOR EXAM: Pronator motor function present (Left upper extremity) Psych: COMMON NORMALS: speech normal SPEECH: Yes normal speech Skin: COMMON NORMALS: no rashes or lesions noted GENERAL SKIN EXAM: no rashes or lesions noted Course Vital Signs: Vital signs: Vital Signs Temperature 98.5 F 10/09/22 03:22 Pulse Rate 88 10/09/22 07:00 Respiratory Rate 18 10/09/22 07:00 Blood Pressure 116/65 10/09/22 07:00 Pulse Oximetry 94 10/09/22 07:00 Oxygen Delivery Me thod Room Air 10/09/22 05:19 MDM - Headache Medical Decision Making This patient is tachycardic. She is tachypneic. Her saturations are normal. White blood cell count is 11. Bicarbonate level is 20. Chest x-ray is nonacute. Head CT was nonacute. CK level is normal. She is not . Her D-dimer however is 1.67. Given her neurologic symptoms of dizziness, headache, CTA of the head and neck was ordered as vertebral artery dissection is on the differential. CTA of the chest was also ordered. Results are pending. CTA of the head and neck are negative for dissection or clot. CT of the chest reveals segmental consolidation in the right lower lobe consistent with infection. She will get Rocephin and Zithromax here. She will continue this as an outpatient. Symptom control otherwise. Close outpatient follow-up. Lab Data 10/09/22 04:05 10/09/22 04:[address] 10/09/22 04:15 IMPRESSION: No acute intracranial abnormality. Chest X-Ray 10/09/22 04:40 IMPRESSION: No acute findings. Chest CTA 10/09/22 06:27 IMPRESSION: 1. No pulmonary embolism. 2. Segmental consolidation in the right lower lobe consistent with infection or aspiration. Head/Neck CTA 10/09/22 06:27 IMPRESSION: No large vessel stenosis or occlusion. IMPRESSION: No stenosis or occlusion. REFERENCES: NASCET CRITERIA. The degree of stenosis in the cervical segment of the internal carotid artery is based on NASCET criteria. Normal is no stenosis. Mild is less than 50% stenosis. Moderate is 50-69% stenosis. Severe is 70% to 99% stenosis. Total occlusion is no detectable patent lumen. Laboratory Results WBC 10.8 10^3/uL (4.0-10.0) H 10/09/22 04:05 RBC 4.79 10^6/uL (4.1-5.3) 10/09/22 04:05 Hgb 13.7 g/dL (11.5-15.3) 10/09/22 04:05 Hct 40.4 % (37.0-47.0) 10/09/22 04:05 MCV 84.3 fl (81-99) 10/09/22 04:05 MCH 28.6 pg (28.0-34.0) 10/09/22 04:05 MCHC 33.9 g/dL (30.0-36.0) 10/09/22 04:05 RDW 13.4 % (12.1-15.1) 10/09/22 04:05 Plt Count 272 10^3/cmm (130-400) 10/09/22 04:05 MPV 10.1 fL (7.4-10.4) 10/09/22 04:05 Neut % (Auto) 64.5 % 10/09/22 04:05 Lymph % (Auto) 25.1 % 10/09/22 04:05 [place] % (Auto) 8.9 % 10/09/22 04:05 Eos % (Auto) 0.3 % 10/09/22 04:05 Baso % (Auto) 0.9 % 10/09/22 04:05 Neut # (Auto) 6.98 10^3/uL (1.8-7.7) 10/09/22 04:05 Lymph # (Auto) 2.7 10^3/uL (0.8-4.8) 10/09/22 04:05 [place] # (Auto) 1.0 10^3/uL (0.2-0.9) H 10/09/22 04:05 Eos # (Auto) 0.0 10^3/uL (0.0-0.8) 10/09/22 04:05 Baso # (Auto) 0.1 10^3/uL (0.0-0.1) 10/09/22 04:05 Nucleated RBC % (auto) 0 % 10/09/22 04:05 Nucleated RBCs # 0.0 /100WBC 10/09/22 04:05 D-Dimer 1.67 ug/mIFEU (0-0.59) H 10/09/22 05:13 Sodium 133 mmol/L (136-145) L 10/09/22 04:05 Potassium 4.3 mmol/L (3.5-5.1) 10/09/22 04:05 Chloride 100 mmol/L (98-107) 10/09/22 04:05 Carbon Dioxide 20 mmol/L (22-29) L 10/09/22 04:05 Anion Gap 17.3 (5-19) 10/09/22 04:05 BUN 6 mg/dL (6-20) 10/09/22 04:05 Creatinine 0.8 mg/dL (0.5-0.9) 10/09/22 04:05 GFR Calculation 82.1 mL/min (90-130) L 10/09/22 04:05 Glucose 150 mg/dL (65-115) H 10/09/22 04:05 Calculated Osmolality 276 mOsm/kg (285-295) L 10/09/22 04:05 Calcium 9.0 mg/dL (8.5-10.5) 10/09/22 04:05 Total Bilirubin 0.3 mg/dL (0.15-1.2) 10/09/22 04:05 AST 28 U/L (0-32) 10/09/22 04:05 ALT 38 U/L (0-33) H 10/09/22 04:05 Alkaline Phosphatase 69 U/L (35-105) 10/09/22 04:05 Creatine Kinase 85 U/L (26-192) 10/09/22 04:43 Total Protein 7.6 g/dL (6.6-8.7) 10/09/22 04:05 Albumin 3.8 g/dL (3.5-5.2) 10/09/22 04:05 Globulin 3.8 g/dL (1.3-4.6) 10/09/22 04:05 HCG, Qual Negative (Negative) 10/09/22 04:05 Discharge Plan Discharge Patient Disposition: Home Clinical Impression: Headache, Pneumonia Condition: Stable Prescriptions: New cefdinir 300 mg capsule 300 mg PO BID Qty: 14 0RF Zithromax 250 mg tablet See Rx Instructions .ROUTE .COMPLEX Qty: 6 0RF Rx Instructions: For 250 mg dose pack: take 500 mg today (day 1), then 250 mg for 4 days (days 2-5) hydrocodone-acetaminophen 5-325 mg tablet 1 tab PO Q8H PRN (Reason: pain) Qty: 7 0RF metoclopramide HCl [Reglan] 10 mg tablet 10 mg PO Q6H Qty: 20 0RF No Action escitalopram oxalate 10 mg tablet 10 mg PO DAILY 30 Days Qty: 30 3RF Discharge Orders: Discharge ED (Routine); Ordered 10/09/22 Ordered By: Collin Farah Patient Instructions: Acute Headache (ED), Pneumonia (ED), Opioid Safety, Pain Management Activity Restrictions/Additional Instructions: Push oral hydration for the next 24 to 48 hours. Stay in a cool environment. Antibiotics as directed. Take nausea medication scheduled for the next 24 hours, then as needed following. Pain medication for severe pain. Return for worsening symptoms despite treatment. For example, fever despite 2-3 doses of antibiotics, worsening shortness of breath, any other concerning symptoms. See your doctor this week. Coding Level of Care Code ED Groundsman for Vesna Hudson
[2022-10-09 07:30] VITALS: BP 120/58; PULSE 88; RESP 18; TEMP 37; O2SAT 96
[2022-10-09] MEDS: azithromycin 250 mg Tablet 500 MG PO (07:46)
[2022-10-09] MEDS: cefTRIAXone 1,000 MG in sodium chloride 0.9% (plus) 50 ML 100 MG IV (07:46)
[2022-10-09 07:56] VITALS: RESP 18
[2022-10-09] MEDS: fentaNYL 50 mcg/mL INJ 2mL IVP (07:56)
[2022-10-09 08:01] VITALS: BP 120/78; PULSE 88; RESP 18; TEMP 37; O2SAT 96
== END 2022-10-09 08:50 | disposition home or self-care (01) ==
PROVIDERS: Emergency Provider Emergency Medicine
DX: R51.9 Headache, unspecified (principal); J18.9 Pneumonia, unspecified organism; Z77.22 Contact with and (suspected) exposure to environmental tobacco smoke (acute) (chronic)
CPT/HCPCS: 36415; 70450; 70496; 70498; 71045; 71275; 80053; 82550; 84703; 85025; 85378; 96361; 96374; 96375; 96376; 99285; J0696; J1885; J2270; J2405; J3010; J7030; Q0144; Q9967